=== PATIENT | female | born 1975 | race Asian ===

== ENCOUNTER → 2018-06-11 | Outpatient (CLI) | payer OTHER | END | disposition home or self-care (01) | LOC: RAD 10:51 | DX: N20.0 Calculus of kidney (principal) ==

== ENCOUNTER 2018-06-25 09:34 | Outpatient (CLI) | payer OTHER | END 2018-06-25 12:13 | disposition home or self-care (01) | LOC: RAD 09:34 | DX: M54.5 Low back pain (principal); N95.1 Menopausal and female climacteric states; D50.8 Other iron deficiency anemias; R31.29 Other microscopic hematuria ==

== ENCOUNTER 2018-07-05 08:26 | Outpatient (CLI) | payer OTHER | END 2018-07-05 08:39 | disposition home or self-care (01) | LOC: MRI 08:26 | DX: M54.5 Low back pain (principal) | CPT/HCPCS: 72148 ==

== ENCOUNTER → 2025-06-25 | Emergency (ER) | payer OTHER ==
[~2025-06-25] VITALS: Ht 160 cm; Wt 72.6 kg
[~2025-06-25] MED LIST: ACID REDUCER20 M1; CLARITIN10 M1 PO; FLONASE ALLERG9.9 ML NASAL
== END | disposition home or self-care (01) ==
LOC: ER 13:13
DX: B30.9 Viral conjunctivitis, unspecified (principal); R51.9 Headache, unspecified